=== PATIENT | female | born 1955 | race Caucasian/White ===

== ENCOUNTER → 2018-02-24 | Outpatient (CLI) | payer OTHER ==
--- NOTE | 2018-02-27 15:07 | Diagnostic Imaging Report ---
PROCEDURE: US THYROID COMPARISON: None. INDICATIONS:NODULES TECHNIQUE: Transverse and longitudinal mckenna-scale sonographic images of the thyroid were obtained and supplemented with color Doppler. FINDINGS: Right thyroid lobe: Measures 2.7 x 1.3 x 2.7 cm. A hypoechoic nodule in the mid to lower pole measures 1.3 x 0.7 x 1.1 cm. Second nodule in the midpole measures 1.1 x 0.6 x 0.9 cm. A report of a biopsy on 03/26/2015 on the right side describes an FNA in the midpole of a nodule measuring 1.5 x 2.3 x 1.3 cm (images are not available; only the report). Hypoechoic nodule adjacent to the common carotid artery measures 1.0 x 0.6 x 0.9 cm. Left thyroid lobe: Measures 5.0 x 2.2 x 2.6 cm. There are 2 nodules in the midpole measuring 2.2 x 1.7 x 2.3 and 2.7 x 2.1 x 2.6 cm. A report of a biopsy on 03/26/2015 on the left side describes an FNA in the midpole of a nodule measuring 2.3 x 2.6 x 2.2 cm (images are not available; only the report). Hypoechoic area on the left lower pole measures 1.0 x 0.5 x 0.9. Isthmus: Measures 0.6 cm. CONCLUSION: 1. Multiple nodules on the right side do not meet criteria for biopsy. 2. Two nodules in the midpole of the left thyroid lobe by size would meet criteria for biopsy or followup (TR4). Man Etienne D.O. Dictated by: Man Etienne D.O. on 02/27/2018 at 15:17 Electronically approved by: Man Etienne D.O. on 02/27/2018 at 15:17
== END ==
LOC: US 07:38
DX: E04.2 Nontoxic multinodular goiter (principal)
CPT/HCPCS: 76536

== ENCOUNTER → 2019-09-10 | Outpatient (CLI) | payer OTHER ==
--- NOTE | 2019-09-10 16:16 | Diagnostic Imaging Report ---
Thyroid ultrasound CPT code: 70701 History: Thyroid nodules Comparison: None Findings: The patient reports a history of right thyroidectomy. The thyroid echotexture is heterogeneous. Vascularity is normal. There are 2 heterogeneous soft tissue lesions in the region of the right hemithyroidectomy fossa which measure up to 2.7 x 1.2 x 1.3 cm and 1.1 x 0.6 x 0.9 cm. The left lobe measures 5.3 x 2.6 x 3.0 cm. The isthmus measures 0.3 cm. Nodules (measurements are AP, transverse, craniocaudal): Left Lobe: Lower pole 3.0 x 2.3 x 2.5 cm isoechoic solid, wider than tall nodule with mildly lobulated margins and no internal calcifications. (TR4) Isthmus: No cystic mass or discrete solid nodule identified. Lymph Nodes: No cervical lymph nodes are identified. Parathyroids: Not visualized. IMPRESSION: Soft tissue lesions in the right hemithyroidectomy fossa measure up to 2.7 x 1.2 x 1.3cm. If the patient had a thyroidectomy for malignancy, these may represent local recurrent disease. Left thyroid nodule measures up to 3.0cm (TR4). FNA is recommended. ACR glossary of thyroid rads TI-RADS 1: No focal lesion. TI-RADS 2: Not suspicious. TI-RADS 3: Mildly suspicious (recommend FNA is greater than or equal to 2.5 cm; follow-up at 1, 3, and 5 years if greater than or equal to 1.5 cm) TI-RADS 4: Moderately Suspicious (recommend FNA is greater than or equal to 1.5 cm; follow-up at 1, 2, 3, and 5 years) TI-RADS 5: Highly suspicious (recommend FNA is greater than or equal to 10 mm) TI-RADS 6: Biopsy-proven malignancy Signed by: Micky Cueva MD on 09/10/2019 4:13 PM
== END ==
LOC: US 12:31
DX: E04.2 Nontoxic multinodular goiter (principal)
CPT/HCPCS: 76536

== ENCOUNTER 2019-12-23 19:14 | Inpatient (IN) | payer OTHER ==
[~2019-12-23] VITALS: Ht 177.8 cm; Wt 67.8 kg
[2019-12-23] MEDS ORDERED: ONDANSETRON HCL INJ 2MG/ML 2ML 2 MG/ML VIAL IV STA (19:19)
[2019-12-23] MEDS ORDERED: PANTOPRAZOLE 40 MG 10ML VIAL IV STA (19:19)
[2019-12-23] MEDS ORDERED: LORAZEPAM INJ 2 MG/ML VIAL IV ONE (19:30)
[2019-12-23] MEDS ORDERED: MULTIVITAMINS- 12 INJECTION 10 ML, FOLIC ACID MDV 5 MG, THIAMINE HCL INJ 100 MG in SODI... IV ONE (19:30)
[2019-12-23] MEDS ORDERED: CHLORDIAZEPOXIDE HCL 25 MG CAP PO ONE (19:30)
[2019-12-23 19:35] LABS: BASOPHILS % 0.2 % (0.0-1.0); HEMATOCRIT 39.9 % (34.2-44.1); HEMOGLOBIN 13.3 g/dL (12.0-16.0); LYMPHOCYTES # (AUTO) 1.4 (1.0-3.2); LYMPHOCYTES % 11.7 % (18.0-39.1); MEAN CORPUSCULAR HEMOGLOBIN 32.8 pg (28-32); MEAN CORPUSCULAR HGB CONC 33.3 g/dL (31-35); MEAN CORPUSCULAR VOLUME 98.5 fL (81-99); MONOCYTES # (AUTO) 0.4 (0.2-0.8); MONOCYTES % 3.5 % (4.4-11.3); NEUTROPHILS # (AUTO) 10.3 (2.1-6.9); NEUTROPHILS % 84.2 % (38.7-80.0); PLATELET COUNT 300 x10e3/uL (140-360); RED BLOOD COUNT 4.05 x10e6/uL (3.6-5.1); RED CELL DISTRIBUTION WIDTH 12.7 % (11.7-14.4)
[2019-12-23 19:54] LABS: ALANINE AMINOTRANSFERASE 22 IU/L (0-55); ALBUMIN 4.6 g/dL (3.5-5.0); ALBUMIN/GLOBULIN RATIO 1.4 (0.8-2.0); ALKALINE PHOSPHATASE 85 IU/L (40-150); ANION GAP 22.3 mmol/L (8-16); BLOOD UREA NITROGEN 11 mg/dL (7-26); BUN/CREATININE RATIO 13 (6-25); CALCIUM 9.5 mg/dL (8.4-10.2); CARBON DIOXIDE 17 mmol/L (22-29); CHLORIDE 104 mmol/L (98-107); CREATINE KINASE 108 IU/L (29-168); CREATININE, SERUM 0.84 mg/dL (0.57-1.11); EST GLOMERULAR FILTRATION RATE > 60 ML/MIN (60-); GLUCOSE 205 mg/dL (74-118); POTASSIUM 3.3 mmol/L (3.5-5.1); SODIUM 140 mmol/L (136-145)
[2019-12-23] MEDS ORDERED: CHLORDIAZEPOXIDE 100 MG AMP IV ONE (20:00)
[2019-12-23] MEDS ORDERED: PHENOBARBITAL SOD 65 MG/ML VIAL IV ONE (20:00)
[2019-12-23 20:16] LABS: FREE THYROXINE INDEX 2.6607 (1.4-3.8); THYROID STIMULATING HORMONE 0.201 uIU/mL (0.350-4.940)
[2019-12-23] MEDS ORDERED: PHENOBARBITAL SOD 65 MG/ML VIAL ONE ×2 (20:28→20:32)
[2019-12-23 20:30] LABS: CLARITY,URINE CLEAR (CLEAR); COLOR,URINE YELLOW (YELLOW)
[2019-12-23] MEDS: SODIUM CHLORIDE 0.9% 50ML 50 ML IV SCH ×2 (20:30→23:37)
[2019-12-23 20:31] LABS: AMPHETAMINES SCREEN,URINE NEGATIVE (NEGATIVE); BENZODIAZEPINES SCREEN,URINE NEGATIVE (NEGATIVE); BILIRUBIN,URINE NEGATIVE (NEGATIVE); KETONES,URINE 2+ (NEGATIVE); LEUKOCYTE ESTERASE ,URINE SMALL (NEGATIVE); NITRITE,URINE NEGATIVE (NEGATIVE); PHENCYCLIDINE SCREEN,URINE NEGATIVE (NEGATIVE); PROTEIN,URINE DIPSTICK 2+ (NEGATIVE); URINE UROBILINOGEN 0.2 mg/dL (0.2 - 1)
[2019-12-23] MEDS ORDERED: SODIUM CHLORIDE 0.9% 50ML 50 ML ONE (20:36)
[2019-12-23 20:40] LABS: AMORPHOUS SEDIMENT,URINE FEW (FEW); BACTERIA,URINE MODERATE /HPF; EPITHELIAL CELLS,URINE FEW /LPF
[2019-12-23 20:41] LABS: MUCUS,URINE FEW (RARE)
[2019-12-23] MEDS ORDERED: SODIUM CHLORIDE 0.9% 1000ML 1,000 ML ONE (20:45)
[2019-12-23] MEDS ORDERED: ONDANSETRON HCL INJ 2MG/ML 2ML 2 MG/ML VIAL IV PRN ×2 (21:00→23:45)
[2019-12-23] MEDS ORDERED: KCL 20MEQ/.9 SOD CHL 1,000 ML IV ONE (21:00)
[2019-12-23] MEDS ORDERED: LORAZEPAM INJ 2 MG/ML VIAL IV PRN (21:00)
[2019-12-23] MEDS ORDERED: PAROXETINE HCL10 MG PO (21:07)
[2019-12-23] MEDS ORDERED: LEVOTHYROXINE75 MCG PO (21:07)
[2019-12-23] MEDS ORDERED: ATORVASTATIN CA20 MG PO (21:07)
[2019-12-23] MEDS ORDERED: POTASSIUM CHLORIDE 20MEQ/100ML 100 ML ONE (21:16)
[2019-12-23] MEDS ORDERED: PROAIR HFA INH8.5 GM INH (21:17)
[2019-12-23] MEDS: CEFTRIAXONE SOD 1 GM/NS 50 ML 50 ML IV SCH (21:30)
[2019-12-23] MEDS ORDERED: ALBUTEROL SULFATE HFA 8GM INHALATION AEROSOL INH PRN (21:30)
[2019-12-23 22:01] LABS: PHOSPHORUS 2.1 MG/DL (2.3-4.7)
[2019-12-23 23:22] VITALS: BP 117/89
[2019-12-24] VITALS (27 sets, daily range): BP systolic 97–154; BP diastolic 57–111
[2019-12-24] MEDS ORDERED: LORAZEPAM INJ 2 MG/ML VIAL IV PRN (01:00)
[2019-12-24] MEDS ORDERED: CHLORDIAZEPOXIDE HCL 25 MG CAP PO SCH (02:00)
[2019-12-24] MEDS: CHLORDIAZEPOXIDE HCL 25 MG CAP PO SCH ×4 (02:44→20:37)
[2019-12-24 03:28] LABS: BASOPHILS % 0.2 % (0.0-1.0); EOSINOPHILS % 0.1 % (0.0-6.0); HEMATOCRIT 34.8 % (34.2-44.1); HEMOGLOBIN 11.6 g/dL (12.0-16.0); LYMPHOCYTES # (AUTO) 1.5 (1.0-3.2); LYMPHOCYTES % 15.7 % (18.0-39.1); MEAN CORPUSCULAR HGB CONC 33.3 g/dL (31-35); MEAN CORPUSCULAR VOLUME 99.1 fL (81-99); MONOCYTES # (AUTO) 0.8 (0.2-0.8); MONOCYTES % 8.6 % (4.4-11.3); NEUTROPHILS # (AUTO) 7.4 (2.1-6.9); NEUTROPHILS % 75.1 % (38.7-80.0); RED BLOOD COUNT 3.51 x10e6/uL (3.6-5.1)
[2019-12-24 03:38] LABS: PLATELET COUNT 211 x10e3/uL (140-360)
[2019-12-24 03:46] LABS: CREATINE KINASE MB 8.2 ng/mL (0-5.0)
[2019-12-24 04:07] LABS: ALANINE AMINOTRANSFERASE 19 IU/L (0-55); ALBUMIN 3.7 g/dL (3.5-5.0); ALBUMIN/GLOBULIN RATIO 1.4 (0.8-2.0); ALKALINE PHOSPHATASE 72 IU/L (40-150); ANION GAP 14.3 mmol/L (8-16); BLOOD UREA NITROGEN 10 mg/dL (7-26); BUN/CREATININE RATIO 13 (6-25); CARBON DIOXIDE 21 mmol/L (22-29); CHLORIDE 111 mmol/L (98-107); CREATININE, SERUM 0.79 mg/dL (0.57-1.11); EST GLOMERULAR FILTRATION RATE > 60 ML/MIN (60-); GLUCOSE 99 mg/dL (74-118); POTASSIUM 3.3 mmol/L (3.5-5.1); SODIUM 143 mmol/L (136-145)
[2019-12-24] MEDS: LEVOTHYROXINE SODIUM 75 MCG TAB PO SCH (05:31)
[2019-12-24] MEDS: POTASSIUM CHLORIDE 20 MEQ TAB CR PO PRN (06:44)
[2019-12-24] MEDS ORDERED: GADOBENATE DIMEGLUMINE 1 ML IV ONE (10:26)
[2019-12-24 13:59] LABS: CREATINE KINASE MB 5.9 ng/mL (0-5.0)
[2019-12-24] MEDS ORDERED: ACETAMINOPHEN 325 MG TAB PO PRN (19:45)
[2019-12-24] MEDS: CEFTRIAXONE SOD 1 GM/NS 50 ML 50 ML IV SCH (20:37)
[2019-12-24] MEDS ORDERED: ATORVASTATIN 20 MG TAB PO SCH (21:00)
[2019-12-25] VITALS (7 sets, daily range): BP systolic 109–131; BP diastolic 68–106
[2019-12-25] MEDS: CHLORDIAZEPOXIDE HCL 25 MG CAP PO SCH ×3 (02:00→14:25)
[2019-12-25] MEDS: LEVOTHYROXINE SODIUM 75 MCG TAB PO SCH (06:35)
[2019-12-25 07:42] LABS: BLOOD UREA NITROGEN 7 mg/dL (7-26); BUN/CREATININE RATIO 10 (6-25); CALCIUM 8.2 mg/dL (8.4-10.2); CARBON DIOXIDE 23 mmol/L (22-29); CHLORIDE 108 mmol/L (98-107); CREATININE, SERUM 0.71 mg/dL (0.57-1.11); EST GLOMERULAR FILTRATION RATE > 60 ML/MIN (60-); GLUCOSE 98 mg/dL (74-118); SODIUM 140 mmol/L (136-145)
[2019-12-25 07:56] LABS: BASOPHILS % 0.3 % (0.0-1.0); EOSINOPHILS # (AUTO) 0.1 (0.0-0.4); EOSINOPHILS % 2.1 % (0.0-6.0); HEMATOCRIT 35.6 % (34.2-44.1); HEMOGLOBIN 11.6 g/dL (12.0-16.0); LYMPHOCYTES # (AUTO) 1.6 (1.0-3.2); LYMPHOCYTES % 27.3 % (18.0-39.1); MEAN CORPUSCULAR HEMOGLOBIN 32.5 pg (28-32); MEAN CORPUSCULAR HGB CONC 32.6 g/dL (31-35); MEAN CORPUSCULAR VOLUME 99.7 fL (81-99); MONOCYTES # (AUTO) 0.5 (0.2-0.8); MONOCYTES % 7.9 % (4.4-11.3); NEUTROPHILS # (AUTO) 3.6 (2.1-6.9); NEUTROPHILS % 62.2 % (38.7-80.0); PLATELET COUNT 186 x10e3/uL (140-360); RED BLOOD COUNT 3.57 x10e6/uL (3.6-5.1); RED CELL DISTRIBUTION WIDTH 12.7 % (11.7-14.4)
[2019-12-25] MEDS: POTASSIUM CHLORIDE 20 MEQ TAB CR PO PRN (08:06)
[2019-12-25] MEDS ORDERED: POTASSIUM CHLORIDE 20 MEQ TAB CR PO ONE (13:40)
[2019-12-25] MEDS ORDERED: ENOXAPARIN SOD INJ 40 MG/0.4 ML SYR SC SCH (17:00)
== END 2019-12-25 15:50 | disposition home or self-care (01) | DRG 897 ==
LOC: ER 19:34 → ERHOLD 21:05 → ICU 22:38 → IMCU 12-24 23:57
PROVIDERS: ADMIT Internal Medicine; ATTEND Internal Medicine
DX: F10.131 Alcohol abuse with withdrawal delirium (principal); G40.909 Epilepsy, unspecified, not intractable, without status epilepticus; Z80.3 Family history of malignant neoplasm of breast; E04.1 Nontoxic single thyroid nodule; J44.9 Chronic obstructive pulmonary disease, unspecified; Z11.59 Encounter for screening for other viral diseases; R91.8 Other nonspecific abnormal finding of lung field
CPT/HCPCS: 36415; 51700; 70450; 70553; 71045; 71250; 80048; 80053; 80307; 80320; 81001; 82550; 82553; 83735; 84100; 84436; 84443; 84479; 84484; 85025; 87086; 93005; 95812; 99285; J0696; J1990; J2060; J2405; J2560; J3411; J3480; J7030; U0002

== ENCOUNTER 2021-10-22 05:22 | Emergency (ER) | payer BC, OTHER ==
[~2021-10-22] VITALS: Ht 177.8 cm; Wt 70.3 kg
[~2021-10-22 05:22] MED LIST: ATORVASTATIN CA20 MG PO; LEVOTHYROXINE75 MCG PO; PAROXETINE HCL10 MG PO; PROAIR HFA INH8.5 GM INH
[2021-10-22] MEDS ORDERED: NAPROXEN250 MG PO (05:29)
[2021-10-22] MEDS ORDERED: METHOCARBAMOL500 MG PO (05:29)
[2021-10-22] MEDS ORDERED: KETOROLAC TROMETHAMINE 30 MG/ML VIAL IM STA (05:30)
[2021-10-22] MEDS ORDERED: KETOROLAC TROMETHAMINE 30 MG/ML VIAL ONE (05:47)
== END 2021-10-22 06:04 | disposition home or self-care (01) ==
LOC: ER 05:27
DX: M25.511 Pain in right shoulder (principal); I10 Essential (primary) hypertension; J44.9 Chronic obstructive pulmonary disease, unspecified; E03.9 Hypothyroidism, unspecified; Z85.3 Personal history of malignant neoplasm of breast; Z85.43 Personal history of malignant neoplasm of ovary
CPT/HCPCS: 93005; 99282; J1885